=== PATIENT | female | born 1940 | race Caucasian/White ===

== ENCOUNTER 2018-08-09 12:00 | Emergency (ER) | payer MEDICARE, MEDICAID ==
[~2018-08-09] VITALS: Ht 152.4 cm; Wt 77.1 kg
[2018-08-09] MEDS ORDERED: ASPI81TA31 PO (12:14)
[2018-08-09] MEDS ORDERED: CLOP75TA15 PO (12:14)
--- NOTE | 2018-08-09 13:11 | NUR ---
PT IS IN ROOM #2B. DR SANCHEZ EVALUATED THE PT.
--- NOTE | 2018-08-09 13:26 | NUR ---
PT WAS D/C'd TO HOME. D/C INSTRUCTIONS GIVEN TO THE PT.
[2018-08-09 13:28] VITALS: BP 148/71
== END 2018-08-09 13:29 | disposition home or self-care (01) ==
LOC: ER 12:00
DX: S00.03XA Contusion of scalp, initial encounter (principal); M25.511 Pain in right shoulder; Z79.82 Long term (current) use of aspirin; Z79.01 Long term (current) use of anticoagulants; W18.30XA Fall on same level, unspecified, initial encounter; Y93.89 Activity, other specified; Y92.89 Other specified places as the place of occurrence of the external cause; Y99.8 Other external cause status
CPT/HCPCS: 70450; A4663

== ENCOUNTER 2023-01-26 14:34 | Inpatient (IN) | payer MEDICARE, OTHER ==
[~2023-01-26] VITALS: Ht 152.4 cm; Wt 77.1 kg
[~2023-01-26 14:34] MED LIST: ASPI81TA31 PO; CLOP75TA15 PO
[2023-01-26] MEDS ORDERED: BACL10TA PO (15:11)
[2023-01-26] MEDS ORDERED: ESCI20TA44 PO (15:11)
[2023-01-26] MEDS ORDERED: PANT40TA49 PO (15:11)
[2023-01-26] MEDS ORDERED: QUET25TA PO (15:11)
[2023-01-26] MEDS ORDERED: QUET50TA PO (15:11)
[2023-01-26] MEDS ORDERED: AMLO10TA59 PO (15:11)
[2023-01-26] MEDS ORDERED: TELM40TA2 PO (15:11)
[2023-01-26 15:21] LABS: EOSINOPHILS % (AUTO) 0.1 % (0.0-7.0); HEMATOCRIT 40.7 % (31.2-41.9); HEMOGLOBIN 13.7 g/dL (10.9-14.3); LYMPHOCYTES # (AUTO) 0.9 K/uL (0.8-4.8); LYMPHOCYTES % (AUTO) 6.7 % (20.5-51.5); MEAN CORPUSCULAR HEMOGLOBIN 29.7 uug (24.7-32.8); MEAN CORPUSCULAR HGB CONC 34 g/dL (32.3-35.6); MEAN CORPUSCULAR VOLUME 87.9 fL (75.5-95.3); MONOCYTES # (AUTO) 0.7 K/uL (0.1-1.30); MONOCYTES % (AUTO) 5.6 % (0.0-11.0); NEUTROPHILS # (AUTO) 11.7 K/uL (1.8-8.9); NEUTROPHILS % (AUTO) 87.6 % (38.5-71.5); PLATELET COUNT (AUTO) 235 K/uL (179-408); RED BLOOD CELL COUNT(AUTO) 4.63 MIL/uL (3.63-4.92); RED CELL DISTRIBUTION WIDTH 14.2 % (12.3-17.7); WHITE BLOOD COUNT (AUTO) 13.4 K/uL (3.8-11.8)
[2023-01-26 15:24] LABS: DIFFERENTIAL COMMENT 1
[2023-01-26 15:27] LABS: CALCIUM 9.1 mg/dL (8.5-10.1); CARBON DIOXIDE 28 mmol/L (21-32); CHLORIDE 103 mmol/L (98-107); CREATININE 0.7 mg/dL (0.6-1.3); GLUCOSE 126 mg/dL (74-106); POTASSIUM 3.8 mmol/L (3.5-5.1); SODIUM SERUM 140 mmol/L (136-145); UREA NITROGEN, BLOOD 20 mg/dL (7-18)
[2023-01-26 15:35] LABS: ALANINE AMINOTRANSFERASE 17 U/L (14-59); ALBUMIN 3.4 g/dL (3.4-5.0); ALKALINE PHOSPHATASE 102 U/L (50-136); ASPARTATE AMINOTRANSFERASE 13 U/L (15-37); BILIRUBIN,DIRECT 0.2 mg/dL (0.0-0.2); BILIRUBIN,TOTAL 0.9 mg/dL (0.2-1.0); TOTAL PROTEIN, SERUM 7.3 g/dL (6.4-8.2)
[2023-01-26 15:55] LABS: *BILIRUBIN,URIN NEGATIVE (NEGATIVE); *BLOOD, URINE NEGATIVE (NEGATIVE); *CLARITY,URINE SLIGHTLY CLOUDY (CLEAR); *COLOR,URINE YELLOW (YELLOW); *KETONES,URINE 1+ (NEGATIVE); *PROTEIN,URINE NEGATIVE (NEGATIVE); LEUKOCYTE ESTERASE ,URINE 1+ (NEGATIVE); NITRITE, URINE NEGATIVE (NEGATIVE); PH,URINE 6.5 (5.0-8.0); UGLUCOSE NEGATIVE (NEGATIVE)
[2023-01-26] MEDS ORDERED: PIPERACILLIN SODIUM/TAZOBACTAM 3.375 G in IV DEXTROSE 5% 50 ML IV ONE (17:15)
[2023-01-26] MEDS ORDERED: levoFLOXacin 750MG/D5W 150 ML IV ONE ×2 (17:15→17:34)
[2023-01-26] MEDS ORDERED: PIPERACILLIN/TAZOBACTAM/D5W 50 ML IV ONE (17:34)
[2023-01-26 18:29] LABS: LACTIC ACID 2.8 mmol/L (0.4-2.0)
[2023-01-26] MEDS ORDERED: IV NORMAL SALINE 1000 ML BAG IV ONE (18:30)
[2023-01-26] MEDS ORDERED: MIRALAX 17 GM POWD.PACK PO ONE (18:30)
[2023-01-26 18:31] LABS: LIPASE 17 U/L (73-393)
[2023-01-26] MEDS ORDERED: MIRALAX 17 GM POWD.PACK ONE (18:42)
[2023-01-26 18:51] LABS: BACTERIA,URINE MANY /HPF (NONE SEEN); RBC,URINE 0-3 /HPF (0-3); SQUAMOUS EPITHELIAL CELL,UR MANY /HPF (NONE SEEN)
[2023-01-26] MEDS ORDERED: KETOROLAC TROMETHAMINE 15 MG INJ ONE (19:25)
[2023-01-26] MEDS ORDERED: KETOROLAC TROMETHAMINE 15 MG INJ IVP ONE (19:30)
[2023-01-26] MEDS ORDERED: ALBUTEROL SULFATE 2.5 MG/ 0.5 ML NEBU NEB PRN (19:45)
[2023-01-26] MEDS ORDERED: ONDANSETRON 4 MG/2 ML VIAL IV PRN (19:45)
[2023-01-26] MEDS ORDERED: ACETAMINOPHEN 650 MG SUPP.RECT RC PRN (19:45)
[2023-01-26] MEDS: MORPHINE SULFATE 2 MG/1 ML DISP.SYRIN IV PRN (20:41)
[2023-01-26] MEDS ORDERED: VANCOMYCIN IV 1,500 MG in IV DEXTROSE 5% 500 ML IV ONE (21:00)
[2023-01-26] MEDS ORDERED: VANCOMYCIN 1000 MG VIAL ONE (21:25)
[2023-01-26] MEDS ORDERED: VANCOMYCIN HCL 500 MG VIAL ONE (21:25)
[2023-01-26] MEDS ORDERED: PIPERACILLIN SODIUM/TAZOBACTAM 3.375 G in IV DEXTROSE 5% 50 ML IV SCH (22:00)
[2023-01-26 22:30] VITALS: BP 120/85; TEMP 98.6; O2SAT 99
[2023-01-27] MEDS ORDERED: PIPERACILLIN SODIUM/TAZOBACTAM 3.375 G in IV DEXTROSE 5% 50 ML IV SCH (01:00)
[2023-01-27 04:00] VITALS: BP 126/70; TEMP 98; O2SAT 99
[2023-01-27 06:49] LABS: BASOPHILS % (AUTO) 0.3 % (0.0-2.0); EOSINOPHILS # (AUTO) 0.1 K/uL (0.0-0.7); EOSINOPHILS % (AUTO) 1.1 % (0.0-7.0); HEMATOCRIT 40.2 % (31.2-41.9); HEMOGLOBIN 13.6 g/dL (10.9-14.3); LYMPHOCYTES # (AUTO) 0.9 K/uL (0.8-4.8); LYMPHOCYTES % (AUTO) 15.5 % (20.5-51.5); MEAN CORPUSCULAR HEMOGLOBIN 29.9 uug (24.7-32.8); MEAN CORPUSCULAR HGB CONC 34 g/dL (32.3-35.6); MEAN CORPUSCULAR VOLUME 88.8 fL (75.5-95.3); MONOCYTES # (AUTO) 0.6 K/uL (0.1-1.30); MONOCYTES % (AUTO) 10.2 % (0.0-11.0); NEUTROPHILS # (AUTO) 4.2 K/uL (1.8-8.9); NEUTROPHILS % (AUTO) 72.9 % (38.5-71.5); PLATELET COUNT (AUTO) 208 K/uL (179-408); RED BLOOD CELL COUNT(AUTO) 4.53 MIL/uL (3.63-4.92); RED CELL DISTRIBUTION WIDTH 14.3 % (12.3-17.7); WHITE BLOOD COUNT (AUTO) 5.7 K/uL (3.8-11.8)
[2023-01-27 06:59] LABS: DIFFERENTIAL COMMENT 1
[2023-01-27 07:49] LABS: ALBUMIN 3.3 g/dL (3.4-5.0); BILIRUBIN,TOTAL 1.6 mg/dL (0.2-1.0); CALCIUM 9.1 mg/dL (8.5-10.1); CREATININE 0.7 mg/dL (0.6-1.3); MAGNESIUM 1.7 mg/dL (1.8-2.4); PHOSPHOROUS 3.6 mg/dL (2.5-4.9); POTASSIUM 3.7 mmol/L (3.5-5.1); TOTAL PROTEIN, SERUM 7.3 g/dL (6.4-8.2)
[2023-01-27] MEDS: PIPERACILLIN SODIUM/TAZOBACTAM 3.375 G in IV DEXTROSE 5% 100 ML IV SCH ×2 (09:18→17:45)
[2023-01-27] MEDS: PANTOPRAZOLE SODIUM 40 MG VIAL IV SCH (09:19)
[2023-01-27 11:30] VITALS: BP 118/78; TEMP 98.9; O2SAT 93
[2023-01-27] MEDS: MAGNESIUM SULFATE/D5W 100 ML IV SCH ×2 (14:16→14:18)
[2023-01-27] MEDS: IV D5 1/2 NS 1000 ML 1,000 ML IV PRN (14:17)
[2023-01-27] MEDS: VANCOMYCIN IV 1,000 MG in IV DEXTROSE 5% 250 ML IV SCH (14:38)
[2023-01-27 16:00] VITALS: BP 142/45; TEMP 98.2; O2SAT 92; O2SAT 94
[2023-01-27] MEDS ORDERED: BISACODYL 10 MG SUPP.RECT RC SCH (16:00)
[2023-01-27] MEDS ORDERED: BISACODYL 10 MG SUPP.RECT RC ONE (18:15)
[2023-01-27] MEDS ORDERED: DONE10TA44 PO (19:04)
[2023-01-27 22:26] VITALS: BP 114/50; TEMP 98.2; O2SAT 99
[2023-01-27 22:50] LABS: THYROID STIMULATING HORMONE 1.572 mIU/mL (0.358-3.740)
[2023-01-28] MEDS: PIPERACILLIN SODIUM/TAZOBACTAM 3.375 G in IV DEXTROSE 5% 100 ML IV SCH ×3 (00:51→17:27)
[2023-01-28 04:00] VITALS: BP 128/60; TEMP 98.6; O2SAT 99
[2023-01-28 06:56] LABS: BASOPHILS % (AUTO) 0.4 % (0.0-2.0); EOSINOPHILS # (AUTO) 0.2 K/uL (0.0-0.7); EOSINOPHILS % (AUTO) 4.7 % (0.0-7.0); HEMATOCRIT 36.7 % (31.2-41.9); HEMOGLOBIN 12.4 g/dL (10.9-14.3); LYMPHOCYTES % (AUTO) 20.2 % (20.5-51.5); MEAN CORPUSCULAR HEMOGLOBIN 29.8 uug (24.7-32.8); MEAN CORPUSCULAR HGB CONC 34 g/dL (32.3-35.6); MEAN CORPUSCULAR VOLUME 88.3 fL (75.5-95.3); MONOCYTES # (AUTO) 0.5 K/uL (0.1-1.30); MONOCYTES % (AUTO) 10.7 % (0.0-11.0); NEUTROPHILS # (AUTO) 3.1 K/uL (1.8-8.9); PLATELET COUNT (AUTO) 181 K/uL (179-408); RED BLOOD CELL COUNT(AUTO) 4.16 MIL/uL (3.63-4.92); RED CELL DISTRIBUTION WIDTH 14.1 % (12.3-17.7); WHITE BLOOD COUNT (AUTO) 4.9 K/uL (3.8-11.8)
[2023-01-28 07:12] LABS: DIFFERENTIAL COMMENT 1
[2023-01-28 07:26] LABS: ALBUMIN 2.9 g/dL (3.4-5.0); CALCIUM 8.4 mg/dL (8.5-10.1); CREATININE 0.7 mg/dL (0.6-1.3); MAGNESIUM 1.9 mg/dL (1.8-2.4); POTASSIUM 3.6 mmol/L (3.5-5.1); TOTAL PROTEIN, SERUM 6.5 g/dL (6.4-8.2)
[2023-01-28] MEDS: VANCOMYCIN IV 1,000 MG in IV DEXTROSE 5% 250 ML IV SCH (09:16)
[2023-01-28] MEDS: PANTOPRAZOLE SODIUM 40 MG VIAL IV SCH (09:16)
[2023-01-28 12:00] VITALS: BP 150/57; TEMP 98.6; O2SAT 94
[2023-01-28] MEDS: GLUCERNA SHAKE 237 ML CAN PO SCH ×2 (12:00→17:00)
[2023-01-28 16:21] VITALS: BP 145/51; TEMP 98.6; O2SAT 95
[2023-01-28] MEDS: IV D5 1/2 NS 1000 ML 1,000 ML IV PRN (17:44)
[2023-01-28] MEDS: BISACODYL 10 MG SUPP.RECT RC PRN (18:22)
[2023-01-28] MEDS ORDERED: MEMA28CA5 PO (18:36)
[2023-01-28] MEDS ORDERED: HYDR12.517 PO (18:37)
[2023-01-28] MEDS ORDERED: PITA2TAB PO (18:39)
[2023-01-29] MEDS: PIPERACILLIN SODIUM/TAZOBACTAM 3.375 G in IV DEXTROSE 5% 100 ML IV SCH ×4 (00:08→23:47)
[2023-01-29 05:00] VITALS: BP 137/48; TEMP 98.3; O2SAT 95
[2023-01-29 08:00] VITALS: BP 138/53; TEMP 98.1; O2SAT 94
[2023-01-29 08:25] VITALS: O2SAT 97
[2023-01-29] MEDS: PANTOPRAZOLE SODIUM 40 MG VIAL IV SCH (09:32)
[2023-01-29] MEDS: GLUCERNA SHAKE 237 ML CAN PO SCH ×3 (09:33→17:00)
[2023-01-29] MEDS ORDERED: VANCOMYCIN IV 1,000 MG in IV DEXTROSE 5% 250 ML IV SCH (11:00)
[2023-01-29 11:35] VITALS: BP 127/46; TEMP 98.4; O2SAT 95
[2023-01-29] MEDS: IV D5 1/2 NS 1000 ML 1,000 ML IV PRN (12:53)
[2023-01-29] MEDS ORDERED: LORAZEPAM 2 MG/1 ML VIAL IV PRN (13:15)
[2023-01-29] MEDS ORDERED: ALBUTEROL SULFATE 2.5 MG/ 0.5 ML NEBU NEB PRN (13:37)
[2023-01-29] MEDS ORDERED: FLEET ENEMA 133 ML BOTTLE RC PRN (14:15)
[2023-01-29] MEDS ORDERED: QUETIAPINE FUMARATE 25 MG TABLET PO PRN (14:15)
[2023-01-29 15:40] VITALS: BP 127/57; TEMP 98.6; O2SAT 97
[2023-01-29 20:10] VITALS: BP 103/69; TEMP 98.9; O2SAT 95
[2023-01-30] VITALS (7 sets, daily range): BP systolic 148–170; BP diastolic 59–77; TEMP 97.6–98.6; O2SAT 93–99
[2023-01-30 06:55] LABS: BASOPHILS % (AUTO) 0.4 % (0.0-2.0); EOSINOPHILS # (AUTO) 0.3 K/uL (0.0-0.7); EOSINOPHILS % (AUTO) 5.3 % (0.0-7.0); HEMOGLOBIN 13.7 g/dL (10.9-14.3); LYMPHOCYTES # (AUTO) 0.9 K/uL (0.8-4.8); LYMPHOCYTES % (AUTO) 16.8 % (20.5-51.5); MEAN CORPUSCULAR HGB CONC 34 g/dL (32.3-35.6); MEAN CORPUSCULAR VOLUME 87.4 fL (75.5-95.3); MONOCYTES # (AUTO) 0.5 K/uL (0.1-1.30); MONOCYTES % (AUTO) 10.4 % (0.0-11.0); NEUTROPHILS # (AUTO) 3.5 K/uL (1.8-8.9); NEUTROPHILS % (AUTO) 67.1 % (38.5-71.5); PLATELET COUNT (AUTO) 202 K/uL (179-408); RED BLOOD CELL COUNT(AUTO) 4.57 MIL/uL (3.63-4.92); RED CELL DISTRIBUTION WIDTH 13.9 % (12.3-17.7); WHITE BLOOD COUNT (AUTO) 5.2 K/uL (3.8-11.8)
[2023-01-30 07:04] LABS: DIFFERENTIAL COMMENT 1
[2023-01-30 07:13] LABS: CALCIUM 9.2 mg/dL (8.5-10.1); CARBON DIOXIDE 30 mmol/L (21-32); CHLORIDE 105 mmol/L (98-107); CREATININE 0.7 mg/dL (0.6-1.3); GLUCOSE 108 mg/dL (74-106); MAGNESIUM 1.9 mg/dL (1.8-2.4); PHOSPHOROUS 3.7 mg/dL (2.5-4.9); POTASSIUM 3.5 mmol/L (3.5-5.1); SODIUM SERUM 142 mmol/L (136-145); UREA NITROGEN, BLOOD 11 mg/dL (7-18)
[2023-01-30] MEDS: PANTOPRAZOLE SODIUM 40 MG TABLET.DR PO SCH (07:33)
[2023-01-30] MEDS: IV D5 1/2 NS 1000 ML 1,000 ML IV PRN (07:34)
[2023-01-30] MEDS: GLUCERNA SHAKE 237 ML CAN PO SCH ×3 (08:00→17:00)
[2023-01-30] MEDS: PIPERACILLIN SODIUM/TAZOBACTAM 3.375 G in IV DEXTROSE 5% 100 ML IV SCH ×2 (09:25→17:02)
[2023-01-30] MEDS: BISACODYL 10 MG SUPP.RECT RC PRN (20:53)
[2023-01-31] MEDS: IV D5 1/2 NS 1000 ML 1,000 ML IV PRN (00:15)
[2023-01-31] MEDS: PIPERACILLIN SODIUM/TAZOBACTAM 3.375 G in IV DEXTROSE 5% 100 ML IV SCH ×3 (00:15→17:24)
[2023-01-31 05:48] VITALS: BP 151/59; TEMP 98.2; O2SAT 98
[2023-01-31] MEDS: PANTOPRAZOLE SODIUM 40 MG TABLET.DR PO SCH (06:04)
[2023-01-31 07:57] LABS: BASOPHILS % (AUTO) 0.4 % (0.0-2.0); EOSINOPHILS # (AUTO) 0.2 K/uL (0.0-0.7); EOSINOPHILS % (AUTO) 4.9 % (0.0-7.0); HEMATOCRIT 36.6 % (31.2-41.9); HEMOGLOBIN 12.5 g/dL (10.9-14.3); LYMPHOCYTES # (AUTO) 0.8 K/uL (0.8-4.8); LYMPHOCYTES % (AUTO) 17.3 % (20.5-51.5); MEAN CORPUSCULAR HEMOGLOBIN 29.9 uug (24.7-32.8); MEAN CORPUSCULAR HGB CONC 34 g/dL (32.3-35.6); MEAN CORPUSCULAR VOLUME 87.7 fL (75.5-95.3); MONOCYTES # (AUTO) 0.6 K/uL (0.1-1.30); MONOCYTES % (AUTO) 12.5 % (0.0-11.0); NEUTROPHILS % (AUTO) 64.9 % (38.5-71.5); PLATELET COUNT (AUTO) 182 K/uL (179-408); RED BLOOD CELL COUNT(AUTO) 4.17 MIL/uL (3.63-4.92); RED CELL DISTRIBUTION WIDTH 14.1 % (12.3-17.7); WHITE BLOOD COUNT (AUTO) 4.7 K/uL (3.8-11.8)
[2023-01-31 08:11] LABS: DIFFERENTIAL COMMENT 1
[2023-01-31 08:15] LABS: CARBON DIOXIDE 30 mmol/L (21-32); CHLORIDE 102 mmol/L (98-107); CREATININE 0.6 mg/dL (0.6-1.3); GLUCOSE 113 mg/dL (74-106); MAGNESIUM 1.7 mg/dL (1.8-2.4); PHOSPHOROUS 3.1 mg/dL (2.5-4.9); SODIUM SERUM 139 mmol/L (136-145); UREA NITROGEN, BLOOD 9 mg/dL (7-18)
[2023-01-31] MEDS: GLUCERNA SHAKE 237 ML CAN PO SCH ×3 (08:59→17:25)
[2023-01-31] MEDS: MORPHINE SULFATE 2 MG/1 ML DISP.SYRIN IV PRN ×2 (09:30→17:43)
[2023-01-31 12:00] VITALS: BP 136/59; TEMP 99.2; O2SAT 94
[2023-01-31 12:38] LABS: *BILIRUBIN,URIN NEGATIVE (NEGATIVE); *BLOOD, URINE NEGATIVE (NEGATIVE); *CLARITY,URINE CLEAR (CLEAR); *COLOR,URINE YELLOW (YELLOW); *KETONES,URINE NEGATIVE (NEGATIVE); *PROTEIN,URINE NEGATIVE (NEGATIVE); LEUKOCYTE ESTERASE ,URINE 1+ (NEGATIVE); NITRITE, URINE NEGATIVE (NEGATIVE); UGLUCOSE NEGATIVE (NEGATIVE)
[2023-01-31] MEDS: POTASSIUM CHLORIDE 10 MEQ TAB.PRT.SR PO SCH ×3 (12:48→16:30)
[2023-01-31] MEDS: MAGNESIUM OXIDE 400 MG TABLET PO SCH ×2 (12:48→15:22)
[2023-01-31 15:27] LABS: BACTERIA,URINE FEW /HPF (NONE SEEN); RBC,URINE NONE SEEN /HPF (0-3); SQUAMOUS EPITHELIAL CELL,UR MODERATE /HPF (NONE SEEN)
[2023-01-31 15:28] LABS: YEAST,URINE FEW /HPF (NONE SEEN)
[2023-01-31 16:00] VITALS: BP 144/67; TEMP 99.1; O2SAT 99
[2023-01-31] MEDS ORDERED: POTASSIUM CHLORIDE 20 MEQ POWDER PACKET PO ONE (17:30)
[2023-01-31 20:00] VITALS: BP 135/58; TEMP 99; O2SAT 95
[2023-02-01] VITALS (7 sets, daily range): BP systolic 125–147; BP diastolic 53–78; TEMP 97.3–98.8; O2SAT 93–96
[2023-02-01] MEDS: PIPERACILLIN SODIUM/TAZOBACTAM 3.375 G in IV DEXTROSE 5% 100 ML IV SCH ×3 (00:31→16:44)
[2023-02-01] MEDS: PANTOPRAZOLE SODIUM 40 MG TABLET.DR PO SCH (06:50)
[2023-02-01 07:04] LABS: BASOPHILS % (AUTO) 0.5 % (0.0-2.0); EOSINOPHILS # (AUTO) 0.3 K/uL (0.0-0.7); HEMATOCRIT 37.1 % (31.2-41.9); HEMOGLOBIN 12.6 g/dL (10.9-14.3); LYMPHOCYTES # (AUTO) 0.7 K/uL (0.8-4.8); LYMPHOCYTES % (AUTO) 16.1 % (20.5-51.5); MEAN CORPUSCULAR HGB CONC 34 g/dL (32.3-35.6); MEAN CORPUSCULAR VOLUME 88.3 fL (75.5-95.3); MONOCYTES # (AUTO) 0.5 K/uL (0.1-1.30); MONOCYTES % (AUTO) 10.6 % (0.0-11.0); NEUTROPHILS # (AUTO) 2.9 K/uL (1.8-8.9); NEUTROPHILS % (AUTO) 66.8 % (38.5-71.5); PLATELET COUNT (AUTO) 176 K/uL (179-408); RED BLOOD CELL COUNT(AUTO) 4.21 MIL/uL (3.63-4.92); RED CELL DISTRIBUTION WIDTH 14.2 % (12.3-17.7); WHITE BLOOD COUNT (AUTO) 4.4 K/uL (3.8-11.8)
[2023-02-01 07:06] LABS: DIFFERENTIAL COMMENT 1
[2023-02-01 07:19] LABS: CALCIUM 9.4 mg/dL (8.5-10.1); CARBON DIOXIDE 28 mmol/L (21-32); CHLORIDE 106 mmol/L (98-107); CREATININE 0.6 mg/dL (0.6-1.3); GLUCOSE 117 mg/dL (74-106); MAGNESIUM 1.9 mg/dL (1.8-2.4); PHOSPHOROUS 3.3 mg/dL (2.5-4.9); POTASSIUM 3.7 mmol/L (3.5-5.1); SODIUM SERUM 141 mmol/L (136-145); UREA NITROGEN, BLOOD 14 mg/dL (7-18)
[2023-02-01] MEDS: MORPHINE SULFATE 2 MG/1 ML DISP.SYRIN IV PRN (08:21)
[2023-02-01] MEDS: GLUCERNA SHAKE 237 ML CAN PO SCH ×2 (08:24→12:14)
[2023-02-01] MEDS ORDERED: CEFEPIME HCL 1 G VIAL ONE (22:01)
[2023-02-01] MEDS: CEFEPIME HCL 1 G in IV DEXTROSE 5% 50 ML IV SCH (22:22)
[2023-02-02] MEDS ORDERED: CEFEPIME HCL 1 G VIAL ONE (02:50)
[2023-02-02 04:00] VITALS: BP 157/73; TEMP 98.6; O2SAT 95
[2023-02-02] MEDS: CEFEPIME HCL 1 G in IV DEXTROSE 5% 50 ML IV SCH ×2 (05:46→14:13)
[2023-02-02] MEDS: PANTOPRAZOLE SODIUM 40 MG TABLET.DR PO SCH (07:07)
[2023-02-02 07:30] VITALS: BP 142/68; TEMP 98.4; O2SAT 96
[2023-02-02] MEDS: MORPHINE SULFATE 2 MG/1 ML DISP.SYRIN IV PRN (08:20)
[2023-02-02] MEDS: IV D5 1/2 NS 1000 ML 1,000 ML IV PRN (11:58)
[2023-02-02 12:00] VITALS: BP 146/63; TEMP 98.1; O2SAT 97
[2023-02-02] MEDS ORDERED: AMOX600S16 PO (13:25)
[2023-02-02] MEDS ORDERED: NITR100C11 PO (13:25)
[2023-02-02 15:25] VITALS: O2SAT 94
== END 2023-02-02 16:45 | disposition hospice, home (50) | DRG 871 ==
LOC: ER 14:51 → TELE3 20:37 → MEDSURG3 01-27 06:57 → TELE3 01-27 08:25 → MEDSURG3 01-28 18:20
PROVIDERS: ADMIT Internal Medicine; ATTEND Nurse Practitioner Acute Care
DX: A41.9 Sepsis, unspecified organism (principal); G92.8 Other toxic encephalopathy; J69.0 Pneumonitis due to inhalation of food and vomit; N39.0 Urinary tract infection, site not specified; D68.69 Other thrombophilia; Z20.822 Contact with and (suspected) exposure to COVID-19; E66.9 Obesity, unspecified; G62.9 Polyneuropathy, unspecified; G89.29 Other chronic pain; K56.41 Fecal impaction; R13.10 Dysphagia, unspecified; Z86.73 Personal history of transient ischemic attack (TIA), and cerebral infarction without residual deficits; Z90.49 Acquired absence of other specified parts of digestive tract; Z85.828 Personal history of other malignant neoplasm of skin; Z74.09 Other reduced mobility; I11.9 Hypertensive heart disease without heart failure; F03.90 Unspecified dementia, unspecified severity, without behavioral disturbance, psychotic disturbance, mood disturbance, and anxiety; Z90.710 Acquired absence of both cervix and uterus; Z73.6 Limitation of activities due to disability; Z68.33 Body mass index [BMI] 33.0-33.9, adult
CPT/HCPCS: 36415; 70450; 71045; 83605; 83615; 83690; 83735; 84100; 84443; 84484; 85025; 87040; 93005; A4663; C1758; C9113; G0378; J0692; J1885; J1956; J2060; J2270; J2405; J2543; J3370; J3475; J7040; J7042; J7050; J7060